=== PATIENT | male | born 1985 | race African-American/Black ===

== ENCOUNTER 2018-05-13 20:20 | Emergency (ER) | payer SELFPAY ==
[2018-05-13 20:28] VITALS: BP 150/93; PULSE 97; TEMP 98.7; BMI 23.0
--- NOTE | 2018-05-13 20:28 | PDOC ---
Rapid Medical Evaluation Chief Complaint: Cold Symptoms Time Seen by Provider: 05/13/18 20:22 Medical Evaluation: Allergies Allergy/AdvReac Type Severity Reaction Status Date / Time No Known Allergies Allergy Verified 05/14/16 20:55 05/13/18 20:23 32 year old male c/o cough reports smoking PCP, marijuana and cigarettes. PE: patient alert ox3. slowed speech. breath sounds clear A: cough; substance abuse P: chest xray; Urine toxicology patient to the ER for further management. 05/13/18 20:26 Discharge Disposition - Diagnosis Cough, Substance abuse - Referrals - Patient Instructions - Post Discharge Activity
== END 2018-05-13 21:15 | disposition left against medical advice (07) ==
LOC: JERFT 20:20
CPT/HCPCS: 99281-25

== ENCOUNTER 2018-11-25 17:26 | Emergency (ER) | payer OTHER ==
--- NOTE | 2018-11-25 17:45 | PDOC ---
Rapid Medical Evaluation Time Seen by Provider: 11/25/18 17:40 Medical Evaluation: Allergies Allergy/AdvReac Type Severity Reaction Status Date / Time No Known Allergies Allergy Verified 05/14/16 20:55 11/25/18 17:40 I have performed a brief in-person evaluation of this patient. The patient presents with a chief complaint of: Feeling anxious, paronoid and "thinking a lot" after drinking "a detox tea with natural products" today and thinks he drank too much. Drank same tea before but never experienced these sxs. Denies illicit drug use today but admits to using PCP "on and off", last time several days ago. Denies any other illicit drugs. No SI/HI. H/o ?ADHD and denies all other psych hx. Might have fmhx of psych d/o Pertinent physical exam findings:Pt w/ odd affect in triage, mostly talking to himself I have ordered the following:labs The patient will proceed to the ED for further evaluation. 11/25/18 17:46 Discharge Disposition - Diagnosis Altered mental status Qualifiers: Altered mental status type: unspecified Qualified Code(s): R41.82 - Altered mental status, unspecified - Referrals - Patient Instructions - Post Discharge Activity
[2018-11-25 17:47] VITALS: BMI 20.9
[2018-11-25] MEDS ORDERED: LORazepam 1 MG TABLET PO ONE (18:35)
--- NOTE | 2018-11-25 18:52 | PDOC ---
History of Present Illness - General Chief Complaint: Psychiatric Stated Complaint: ANXIETY Time Seen by Provider: 11/25/18 17:40 History Source: Patient Exam Limitations: No Limitations - History of Present Illness Initial Comments: 11/25/18 18:49 33 yo M with a hx of ADHD and polysubstance abuse presents to the emergency department with anxiety and "racing thoughts Past History - Past Medical History Allergies/Adverse Reactions: Allergies Allergy/AdvReac Type Severity Reaction Status Date / Time No Known Allergies Allergy Verified 11/25/18 17:40 Home Medications: Ambulatory Orders No Home Medications 0 dose .ROUTE UTDICT 11/17/12 Sulfamethoxazole/Trimethoprim [Bactrim *Ds*] 1 tab PO BID #14 tablet 11/17/12 COPD: No Psychiatric Problems: Yes (ANXIETY) - Immunization History Immunization Up to Date: No - Suicide/Smoking/Psychosocial Hx Smoking Status: Yes Smoking History: Current every day smoker Number of Cigarettes Smoked Daily: 20 Information on smoking cessation initiated: No Hx Alcohol Use: No Drug/Substance Use Hx: (PCP) Substance Use Type: None, Marijuana *Physical Exam - Vital Signs Last Vital Signs Temp Pulse Resp BP Pulse Ox 98.0 F 83 18 135/94 97 11/25/18 17:42 11/25/18 17:42 11/25/18 17:42 11/25/18 17:42 11/25/18 17:42 Medical Decision Making - Medical Decision Making 11/25/18 21:48 Patient received 1 mg of ativan. States it improved his anxiety and is well now. Able to tolerate PO and ate in the department. will follow up with psychiatry and PMD referred to him. EKG within normal limits. *DC/Admit/Observation/Transfer Diagnosis at time of Disposition: Anxiety - Discharge Dispostion Disposition: HOME Decision to Admit order: No - Referrals Referrals: [facility] – [place] [facility] [place] [Provider Group] Asya Orellana MD [Staff Physician] - - Patient Instructions Printed Discharge Instructions: Anxiety and Panic Attacks (Alternative Therapy) , DI for Anxiety -- Adult Additional Instructions: you were seen in the emergency department for the evaluation of your anxiety. You improved with ativan and tolerating PO well. please follow up with your the primary medical doctor in 1 week for follow up care. please follow up with the psychiatrist within 3 days after discharge. please return to the emergency department if you have worsening symptoms or new concerning symptoms such as suicidal or homicidal thoughts, hearing voice or seeing hallucinations, fever, and confusion. thank you. - Post Discharge Activity
--- NOTE | 2018-11-25 19:18 | PDOC ---
Documentation entered by Amos Singer SCRIBE, acting as scribe for Guru Mann MD. Guru Mann MD: This documentation has been prepared by the Lucrecia colindres Nirvannie, SCRIBE, under my direction and personally reviewed by me in its entirety. I confirm that the documentation accurately reflects all work, treatment, procedures, and medical decision making performed by me. Attending Attestation - Resident Resident Name: Neptali Leahy - ED Attending Attestation I have performed the following: I have examined & evaluated the patient, The case was reviewed & discussed with the resident, I agree w/resident's findings & plan - HPI HPI: 11/25/18 18:41 The patient is a 33 year old male, with a significant past medical history of, who presents to the emergency department with, increased anxiety after drinking a detox tea with alleged natural substances. He endorses drinking the tea in the past without similar episode. He denies any suicidal or homicidal ideation. Allergies: NKDA - Physicial Exam PE: 11/25/18 19:10 Patient is alert, awake, mildly agitated, Normocephalic and atraumatic PERRLA, EOMI, no nystagmus cta rrr Cranial nerves II through XII grossly intact; motor is 5 of 5; pt appears hypervigilant; with flight of ideas and tangential thought process - Medical Decision Making 11/25/18 19:16 Patient is safe 33-year-old male with history of polysubstance abuse who presents to the ER with signs and symptoms of acute psychosis likely PCP induced. Patient is not suicidal homicidal at this time. We'll administer benzodiazepines. Will reassess. 11/25/18 22:20 Patient is resting comfortably. His agitation has resolved. Suspect drug- induced psychosis. Patient has had a meal in the ER and will follow-up with group therapy as scheduled.
[2018-11-25] MEDS ORDERED: LORazepam 0.5 MG TABLET ONE (20:20)
[2018-11-26 00:47] VITALS: BP 130/88; PULSE 86; TEMP 98.3
--- NOTE | 2018-11-26 15:09 | EKG ---
Test Reason : Blood Pressure : / mmHG Vent. Rate : 077 BPM Atrial Rate : 077 BPM P-R Int : 166 ms QRS Dur : 092 ms QT Int : 396 ms P-R-T Axes : 082 081 073 degrees QTc Int : 448 ms NORMAL SINUS RHYTHM NORMAL ECG NO PREVIOUS ECGS AVAILABLE Confirmed by TAMIR TOMAS MD ([id number]) on 11/26/2018 3:09:13 PM Referred By: Confirmed By:TAMIR TOMAS MD
== END 2018-11-26 00:47 | disposition home or self-care (01) ==
LOC: JER 17:26
DX: F41.9 Anxiety disorder, unspecified (principal); F19.10 Other psychoactive substance abuse, uncomplicated
CPT/HCPCS: 93005; 93010; 99282-25

== ENCOUNTER 2019-06-20 18:37 | Emergency (ER) | payer OTHER ==
--- NOTE | 2019-06-20 18:43 | PDOC ---
Rapid Medical Evaluation Time Seen by Provider: 06/20/19 18:40 Medical Evaluation: Allergies Allergy/AdvReac Type Severity Reaction Status Date / Time No Known Allergies Allergy Verified 11/25/18 17:40 06/20/19 18:40 I have performed a brief in-person evaluation of this patient. The patient presents with a chief complaint of: suicidal, depressed generally feeling ill Pertinent physical exam findings:stable and in NAD, non-focal I have ordered the following: provider to determine The patient will proceed to the ED for further evaluation.
[2019-06-20 18:44] VITALS: TEMP 98; BMI 26.4
--- NOTE | 2019-06-20 19:18 | PDOC ---
Documentation entered by Torie Stewart SCRIBE, acting as scribe for Krystle Andrade MD. Krystle Andrade MD: This documentation has been prepared by the Terry colindres Sammi, SCRIBE, under my direction and personally reviewed by me in its entirety. I confirm that the documentation accurately reflects all work, treatment, procedures, and medical decision making performed by me. Attending Attestation - Resident Resident Name: ShygeethaMaddie - ED Attending Attestation I have performed the following: I have examined & evaluated the patient, The case was reviewed & discussed with the resident, I agree w/resident's findings & plan, Exceptions are as noted - HPI HPI: 06/20/19 19:17 34-year-old male brought in by his mother for concerns of sadness episode following a discussion about his brother who is incarcerated. He also had a complaint of skin itching and chest discomfort. He states he wants to be checked out to make sure he is okay when asked directly he denied having any specific plan to hurt himself - Physicial Exam PE: 06/20/19 19:26 GENERAL: Well-appearing, well-nourished. No apparent distress. HEENT: Normocephalic, atraumatic. PERRL, EOM intact. CARDIOVASCULAR: Normal S1, S2. Regular rate and rhythm. PULMONARY: Clear to auscultation bilaterally. ABDOMEN: Soft, non-distended, non-tender. EXTREMITIES: Normal ROM in all four extremities. No gross deformities. SKIN: +scattered exoriations Warm, dry. No rash NEUROLOGICAL: No focal neurological deficits. PSYCH: +anxious, sad - Medical Decision Making 06/20/19 19:38 Asked directly the patient states he absolutely does not have a plan to hurt himself He is very anxious and tearful because his brother has been incarcerated and he came to make sure that he was okay
--- NOTE | 2019-06-20 19:32 | PDOC ---
History of Present Illness - General Chief Complaint: Suicidal Stated Complaint: CHEST PAIN Time Seen by Provider: 06/20/19 18:40 Past History - Past Medical History Allergies/Adverse Reactions: Allergies Allergy/AdvReac Type Severity Reaction Status Date / Time No Known Allergies Allergy Verified 06/20/19 18:44 Home Medications: Ambulatory Orders Cephalexin Monohydrate [Keflex -] 500 mg PO Q8H #21 capsule MDD 3 tabs 06/20/19 Methotrexate Sodium [Methotrexate] 0 mg PO DAILY 06/20/19 Metoprolol Tartrate 0 mg PO DAILY 06/20/19 COPD: No Psychiatric Problems: Yes (ANXIETY) - Immunization History Immunization Up to Date: No - Psycho Social/Smoking Cessation Hx Smoking Status: Yes Smoking History: Never smoked Number of Cigarettes Smoked Daily: 20 Hx Alcohol Use: No Drug/Substance Use Hx: (PCP) Substance Use Type: None, Marijuana *Physical Exam - Vital Signs Last Vital Signs Temp Pulse Resp BP Pulse Ox 98 F 72 18 144/81 100 06/20/19 18:39 06/20/19 18:39 06/20/19 18:39 06/20/19 18:39 06/20/19 18:39 ED Treatment Course - LABORATORY CBC & Chemistry Diagram: 06/20/19 19:40 06/20/19 19:40 - RADIOLOGY Radiology Studies Ordered: Category Date Time Status CHEST X-RAY PORTABLE* [RAD] Stat Radiology 06/20/19 19:18 Ordered Medical Decision Making - Medical Decision Making 06/20/19 19:31 HPI: 34yo M presents to ED with mother c/o bump behind L ear. Per Dr Andrade, pt was initially c/o sadness due to his brother's situation, in addition to pruritus and chest discomfort. When I spoke with pt, pt denied these sx and c/o of just not feeling well and bump behind L ear, unknown duration time, unknown provoking /palliating factors, no hx similar sx, nonpainful, just irritating. Denies SI/HI /AVH, alcohol use, drug use, smoking. ROS: Constitutional: Negative for chills, fever, fatigue, diaphoresis. HENT: Positive for bump behind left ear. Negative for sore throat, rhinorrhea, congestion. Eyes: Negative for visual disturbance. Respiratory: Negative for shortness of breath, cough, and wheezing. Cardiovascular: Negative for chest pain, palpitations, and leg swelling. Gastrointestinal: Negative for abdominal pain, blood in stool, constipation, diarrhea, nausea, and vomiting. Genitourinary: Negative for dysuria, flank pain, and hematuria. Musculoskeletal: Negative for myalgias, back pain, and neck pain. Skin: Positive for itching. Negative for rash. Neurological: Negative for light-headedness, dizziness, vertigo, syncope, weakness, numbness and headaches. Psychiatric/Behavioral: Negative for behavioral problems and confusion. PE: Gen: Alert, NAD, anxious-appearing. HEENT: PERRL, EOMI, MMM, NCAT. No conjunctival pallor. Sclera are non-icteric. Small 1cm diameter cyst behind L ear with mild overlying erythema, no fluctuance or drainage. CV: Regular rate and rhythm. No murmurs, rubs, or gallops. PULM: No resp distress. CTAB, no wheezes, rales, or rhonchi. ABD: soft, NT/ND, no rebound tenderness or guarding, no CVA tenderness. BACK: No TTP of c/t/l-spine. No step-offs or deformities. MSK: No bony deformities. 2+ pulses in all extremities. NEURO: AAOx3. PERRL. No gross CN deficits. Strength and sensation grossly intact throughout. EXTREMITIES: No cyanosis. No clubbing. No edema. No calf tenderness. PSYCH: Anxious and sad mood and normal thought pattern. SKIN: Warm and dry. Normal capillary refill. Scattered excoriations. No jaundice. MDM: 34yo M presents to ED with mother with bump behind L ear, and initial c/o chest discomfort and itching. Ear lump most likely cyst, no e/o abscess requiring drainage, but due to mild overlying erythema, will tx cellulitis with abx. Hemodynamically stable, afebrile. Ddx for chest discomfort and not feeling well: ACS/WV (low concern due to presentation, denial of CP to me, and lack of hx), PNA, PTX, arrhythmia, thyroid pathology, intox, infection, metabolic derangement, anemia -EKG -CXR -CBC,CMP,Trop,TSH,Ethanol,Salicylates,Acetaminophen,UA/UC/UDS -Maalox, Pepcid -Keflex -Dispo: likely d/c home pending w/u 06/20/19 22:02 Labs reviewed. No concerning findings. CXR reviewed: no acute pathology EKG reviewed: NSR, 63bpm, normal intervals, no TWIs, no ST elevations or depressions, no significant changes compared to 11/25/18 Spoke with lab - acetaminophen <2 (difficulty putting into computer). Salicylate machine was down but will be running shortly. Keflex sent to pharmacy. Pending UA, UDS, Salicylate. 06/20/19 22:30 UDS positive for PCP and THC. No UTI. Salicylate negative. Pt safe for d/c. Will dc home with PCP f/u. Return precautions given. Pt understands all dc instructions and all questions were answered. Discharge - Discharge Information Problems reviewed: Yes Clinical Impression/Diagnosis: Substance abuse, Gas pain Condition: Improved Disposition: HOME - Admission No - Additional Discharge Information Prescriptions: Cephalexin Monohydrate [Keflex -] 500 mg PO Q8H #21 capsule MDD 3 tabs - Follow up/Referral Referrals: [facility] – [place] [facility] at [place] [Provider Group] - Patient Discharge Instructions Patient Printed Discharge Instructions: Substance Use Disorder, DI for Epidermal Cyst, DI for Gastroesophageal Reflux Disease (GERD) Additional Instructions: You have been seen in the Emergency Department for your gas pain and ear bump. Your EKG, chest X-ray, and labs, including Troponin (a heart enzyme), show no signs concerning for an emergent condition such as a heart attack or pneumonia. Your gas is most likely due to reflux - you can take over the counter reflux medications as directed. The bump behind your ear appears to be a benign cyst but it might be a little infected. We have sent an antibiotic prescription to your pharmacy - take as prescribed. Your urine also showed PCP and THC (a component of marijuana) - these substances can be very dangerous and you should not be using them. They could also be causing your pains so you will feel better not using them. Follow-up with your primary care doctor within 1 week. Return to the ED immediately if you experience chest pain, difficulty breathing , dizziness, or any other new or worsening symptom. - Post Discharge Activity Work/Back to School Note: My Personal Safety Plan
[2019-06-20 20:29] LABS: ALBUMIN 3.5 g/dl (3.4-5.0); ALK PHOS 85 U/L (45-117); ANION GAP 4 MMOL/L (8-16); BILIRUBIN,TOTAL 0.2 mg/dL (0.2-1); CALCIUM 9.2 mg/dL (8.5-10.1); CHLORIDE 105 mmol/L (98-107); CO2 29 mmol/L (21-32); GLUCOSE,RANDOM 87 mg/dL (74-106); POTASSIUM 4.3 mmol/L (3.5-5.1); SGOT/AST 16 U/L (15-37); SGPT/ALT 20 U/L (13-61); SODIUM 138 mmol/L (136-145); TOT PROT 6.6 g/dl (6.4-8.2)
[2019-06-20 20:59] LABS: HEMATOCRIT 41.1 % (35.4-49); HEMOGLOBIN 12.8 GM/dL (11.7-16.9); LYMPH % 41.7 % (8-40); MCH 28.1 pg (25.7-33.7); MEAN CELL VOLUME 90.6 fl (80-96); MONO % 9.5 % (3.8-10.2); NEUT % 44.8 % (42.8-82.8); PLATELET COUNT 190 K/MM3 (134-434); RBC 4.54 M/mm3 (4.00-5.60); RDW 13.6 % (11.9-15.9); WHITE BLOOD COUNT 5.5 K/mm3 (4.0-10.0)
[2019-06-20] MEDS ORDERED: MAG HYDROX/AL HYDROX/SIMETH 30 ML UNIT-DOSE CUP PO ONE (21:45)
[2019-06-20] MEDS ORDERED: FAMOTIDINE 20 MG/50 ML IVPB 20 MG/50 ML MG IVPB ONE (21:45)
[2019-06-20] MEDS ORDERED: FAMOTIDINE 20 MG TABLET PO ONE (22:01)
[2019-06-20 22:12] LABS: URINE APPEARANCE CLEAR; URINE BILIRUBIN NEGATIVE (NEGATIVE); URINE COLOR YELLOW; URINE GLUCOSE (UA) NEGATIVE (NEGATIVE); URINE KETONE NEGATIVE (NEGATIVE); URINE LEUK ESTERASE NEGATIVE (NEGATIVE); URINE NITRITE NEGATIVE (NEGATIVE); URINE PROTEIN NEGATIVE (NEGATIVE); URINE UROBILINOGEN 0.2 mg/dL (0.2-1.0)
[2019-06-20] MEDS ORDERED: MAG HYDROX/AL HYDROX/SIMETH 30 ML UNIT-DOSE CUP ONE (22:23)
[2019-06-20 22:26] LABS: COCAINE, UR NEGATIVE ng/ml (CUTOFF=300); METHADONE, UR NEGATIVE ng/ml (CUTOFF=300); OPIATES, URI NEGATIVE ng/ml (CUTOFF=300); URINE AMPHETAMINES NEGATIVE ng/ml (CUTOFF=500); URINE BARBITURATES NEGATIVE ng/ml (CUTOFF=200); URINE BENZODIAZEPINES NEGATIVE ng/ml (CUTOFF=200)
[2019-06-20 22:29] LABS: PHENCYCLIDINE,URINE POSITIVE ng/ml (CUTOFF=25)
[2019-06-21 04:38] VITALS: BP 139/86; PULSE 73
--- NOTE | 2019-06-21 12:47 | EKG ---
Test Reason : Blood Pressure : / mmHG Vent. Rate : 063 BPM Atrial Rate : 063 BPM P-R Int : 178 ms QRS Dur : 088 ms QT Int : 398 ms P-R-T Axes : 082 082 071 degrees QTc Int : 407 ms NORMAL SINUS RHYTHM NORMAL ECG WHEN COMPARED WITH ECG OF 25-NOV-2018 21:27, NO SIGNIFICANT CHANGE WAS FOUND Confirmed by CHERRY POZO MD ([id number]) on 06/21/2019 12:47:19 PM Referred By: Confirmed By:CHERRY POZO MD
== END 2019-06-20 22:46 | disposition home or self-care (01) ==
LOC: JER 18:37
DX: R14.1 Gas pain (principal); K21.9 Gastro-esophageal reflux disease without esophagitis; F19.10 Other psychoactive substance abuse, uncomplicated; F16.10 Hallucinogen abuse, uncomplicated; L72.8 Other follicular cysts of the skin and subcutaneous tissue
CPT/HCPCS: 36415; 71045-TC-FY; 80053; 80307; 81003; 84443; 84484; 85025; 93005; 93010; 99284-25

== ENCOUNTER 2020-10-17 12:25 | Emergency (ER) | payer OTHER ==
[2020-10-17 12:32] VITALS: BP 158/79; PULSE 103; TEMP 98.3; BMI 22.3
== END 2020-10-17 13:22 | disposition home or self-care (01) ==
LOC: JERFT 12:25
DX: S61.452A Open bite of left hand, initial encounter (principal); K05.6 Periodontal disease, unspecified
CPT/HCPCS: 99283-25

== ENCOUNTER 2020-11-18 12:33 | Emergency (ER) | payer OTHER ==
[2020-11-18 12:45] VITALS: BP 164/97; PULSE 96; TEMP 98.5; BMI 22.7
[2020-11-18] MEDS ORDERED: DOXYCYCLINE HYCLATE 100 MG CAPSULE PO ONE ×2 (13:14→13:16)
== END 2020-11-18 13:23 | disposition home or self-care (01) ==
LOC: JERFT 12:33 → JER 12:33 → JERFT 13:23
DX: S80.862A Insect bite (nonvenomous), left lower leg, initial encounter (principal)
CPT/HCPCS: 99283-25

== ENCOUNTER 2022-03-05 08:47 | Emergency (ER) | payer OTHER ==
[2022-03-05 08:57] VITALS: TEMP 97.9; BMI 24.4
[2022-03-05] MEDS ORDERED: LIDOCAINE VISCOUS 2% ORAL/TOP 15 ML UNIT-DOSE CUP MM ONE (09:40)
[2022-03-05] MEDS ORDERED: MAG HYDROX/AL HYDROX/SIMETH -MYLANTA- ORAL SUSPENSION PO ONE (09:40)
[2022-03-05] MEDS ORDERED: ACETAMINOPHEN 1000 MG/100 ML BAG IVPB ONE (09:41)
[2022-03-05] MEDS ORDERED: LIDOCAINE VISCOUS 2% ORAL/TOP 15 ML UNIT-DOSE CUP ONE (09:42)
[2022-03-05] MEDS ORDERED: MAG HYDROX/AL HYDROX/SIMETH 30 ML UNIT-DOSE CUP ONE (09:42)
[2022-03-05] MEDS ORDERED: SODIUM CHLORIDE 0.9% 500 ML INFUS.BAG IV ONE (09:48)
[2022-03-05] MEDS ORDERED: ACETAMINOPHEN INJECTION 100 ML IVPB ONE (10:02)
[2022-03-05 10:55] VITALS: BP 129/85; PULSE 66; RESP 16
== END 2022-03-05 11:44 | disposition short-term general hospital (02) ==
LOC: JER 08:47 → JERFT 08:47 → JER 11:44
PROC: 3E0333Z Introduction of Anti-inflammatory into Peripheral Vein, Percutaneous Approach (ICD-10-PCS; principal; 2022-03-05)
DX: T28.0XXA Burn of mouth and pharynx, initial encounter (principal); X10.1XXA Contact with hot food, initial encounter
CPT/HCPCS: 99284-25; C9803-CS; U0003; U0005

== ENCOUNTER 2022-05-27 17:30 | Emergency (ER) | payer OTHER ==
[2022-05-27 17:36] VITALS: TEMP 97; BMI 23.7
[2022-05-27] MEDS ORDERED: FAMOTIDINE 20 MG/50 ML IVPB 20 MG/50 ML MG IVPB ONE ×2 (20:08→20:45)
[2022-05-27] MEDS ORDERED: MAG HYDROX/AL HYDROX/SIMETH 30 ML UNIT-DOSE CUP PO ONE (20:08)
[2022-05-27] MEDS ORDERED: ONDANSETRON 4 MG/2 ML VIAL IVPUSH ONE (20:08)
[2022-05-27] MEDS ORDERED: SODIUM CHLORIDE 0.9% 500 ML INFUS.BAG IV ONE (20:22)
[2022-05-27] MEDS ORDERED: MAG HYDROX/AL HYDROX/SIMETH 30 ML UNIT-DOSE CUP ONE (20:44)
[2022-05-27] MEDS ORDERED: ONDANSETRON 4 MG/2 ML VIAL ONE (20:45)
[2022-05-27 21:43] LABS: ALBUMIN 4.4 g/dl (3.4-5.0); BLOOD UREA NITROGEN 19.6 mg/dL (7-18); MAGNESIUM 2.2 mg/dL (1.8-2.4)
[2022-05-27 21:46] LABS: CREATININE 1.1 mg/dL (0.55-1.3)
[2022-05-27 21:47] LABS: TOT PROT 8.4 g/dl (6.4-8.2)
[2022-05-27 21:49] LABS: BILIRUBIN,TOTAL 0.5 mg/dL (0.2-1)
[2022-05-27 22:36] LABS: BASO % 0.7 % (0-2.0); EOS % 0.2 % (0-4.5); HEMATOCRIT 42.4 % (35.4-49); HEMOGLOBIN 13.8 GM/dL (11.7-16.9); LYMPH % 21.9 % (8-40); MCH 28.7 pg (25.7-33.7); MCHC 32.5 g/dl (32.0-35.9); MEAN CELL VOLUME 88.5 fl (80-96); MEAN PLT VOLUME 7.9 fl (7.5-11.1); NEUT % 69.2 % (42.8-82.8); PLATELET COUNT 195 10^3/uL (134-434); RBC 4.79 M/mm3 (4.00-5.60); RDW 13.9 % (11.9-15.9); WHITE BLOOD COUNT 6.3 K/mm3 (4.0-10.0)
[2022-05-27 22:59] VITALS: BP 128/68; PULSE 78; RESP 16
== END 2022-05-27 23:00 | disposition home or self-care (01) ==
LOC: JER 17:30
PROC: 3E033GC Introduction of Other Therapeutic Substance into Peripheral Vein, Percutaneous Approach (ICD-10-PCS; principal; 2022-05-27)
DX: R11.2 Nausea with vomiting, unspecified (principal); F12.10 Cannabis abuse, uncomplicated
CPT/HCPCS: 0241U-QW; 36415; 80053; 83690; 83735; 85025; 99284-25

== ENCOUNTER 2022-06-19 14:09 | Emergency (ER) | payer OTHER ==
[2022-06-19 14:28] VITALS: BP 127/79; PULSE 83; RESP 18; TEMP 98.7; BMI 22.3
== END 2022-06-19 17:05 | disposition home or self-care (01) ==
LOC: JERFT 14:09 → JER 14:09 → JERFT 17:05
DX: S61.052A Open bite of left thumb without damage to nail, initial encounter (principal)
CPT/HCPCS: 99282-25

== ENCOUNTER 2023-05-02 07:03 | Emergency (ER) | payer OTHER ==
[2023-05-02 07:21] VITALS: BP 128/81; PULSE 83; RESP 18; TEMP 97.7; BMI 23.0
[2023-05-02] MEDS ORDERED: LIDOCAINE HCL 1%, 10 MG/ML (20ML VIAL) ONE (09:47)
== END 2023-05-02 10:32 | disposition home or self-care (01) ==
LOC: JER 07:03
PROC: 0H9KXZZ Drainage of Right Lower Leg Skin, External Approach (ICD-10-PCS; principal; 2023-05-02)
DX: R05.9 Cough, unspecified (principal); R09.81 Nasal congestion; M25.571 Pain in right ankle and joints of right foot; R22.41 Localized swelling, mass and lump, right lower limb; F41.9 Anxiety disorder, unspecified; L02.415 Cutaneous abscess of right lower limb; J06.9 Acute upper respiratory infection, unspecified; Z20.822 Contact with and (suspected) exposure to COVID-19
CPT/HCPCS: 0241U-QW; 99284-25

== ENCOUNTER 2024-06-11 07:08 | Emergency (ER) | payer OTHER ==
[2024-06-11 07:27] VITALS: BP 145/91; PULSE 72; RESP 18; TEMP 98.4; BMI 18.1
[2024-06-11] MEDS ORDERED: ACETAMINOPHEN 325 MG TABLET (FP) ONE (08:33)
[2024-06-11] MEDS: ACETAMINOPHEN 500 MG TABLET (FP) PO ONE (08:35)
[2024-06-11] MEDS ORDERED: ONDANSETRON *ODT* 4 MG TABLET ONE (08:46)
[2024-06-11] MEDS: ONDANSETRON *ODT* 4 MG TABLET SL ONE (08:49)
[2024-06-11] MEDS: ONDANSETRON 4 MG/2 ML VIAL IVPB ONE (09:29)
== END 2024-06-11 10:20 | disposition left against medical advice (07) ==
LOC: JER 07:08
DX: R51.9 Headache, unspecified (principal); R11.2 Nausea with vomiting, unspecified; R07.9 Chest pain, unspecified
CPT/HCPCS: 71046-TC-FY; 93005; 93010; 99284-25; Q0162